=== PATIENT | female | born 1990 | race African-American/Black ===

== ENCOUNTER 2018-07-08 14:13 | Outpatient (CLI) | payer MEDICAID ==
[2018-07-08 14:37] VITALS: BP 103/59
[2018-07-08] MEDS ORDERED: LACTATED RINGERS 500 ML IV ONE (14:40)
[2018-07-08] MEDS ORDERED: BRETHINE ONE (15:17)
[2018-07-08] MEDS: BRETHINE SUB-Q SCH ×2 (15:20→16:45)
[2018-07-08 15:56] LABS: Bacteria,Urine 1+ /HPF (Negative); Bilirubin,Urine NEG (Negative); Blood,Urine LG (Negative); Color,Urine Yellow (Yellow); Mucus,Urine FEW /HPF; Protein,Urine <15 mg/dL mg/dL (Negative); Urobilinogen,Urine < 2.0 mg/dL (<2.0)
[2018-07-08] MEDS ORDERED: ROCEPHIN/NS 1 GM/50 ML 1 GM/50 ML BAG IV SCH (18:00)
== END 2018-07-08 18:01 | disposition home or self-care (01) ==
LOC: TRG 14:13
PROVIDERS: ATTEND Obstetrics & Gynecology
DX: O47.03 False labor before 37 completed weeks of gestation, third trimester (principal); Z3A.30 30 weeks gestation of pregnancy
CPT/HCPCS: 36415; 59025; 81001; 82731; 96360; 96361; 96372; J0696; J3105; J7120